=== PATIENT | female | born 1980 | race African-American/Black ===

== ENCOUNTER 2020-08-02 02:05 | Emergency (ER) | payer SELFPAY ==
[~2020-08-02] VITALS: Ht 167.6 cm; Wt 58.6 kg
[2020-08-02 02:36] VITALS: BP 108/71
== END 2020-08-02 03:36 | disposition left against medical advice (07) ==
LOC: ER 02:05
DX: R10.9 Unspecified abdominal pain (principal); Z53.21 Procedure and treatment not carried out due to patient leaving prior to being seen by health care provider